=== PATIENT | male | born 1985 | race Two or more races ===

== ENCOUNTER → 2017-04-17 | Emergency (ER) | payer OTHER ==
[~2017-04-17] VITALS: Ht 177.8 cm; Wt 91.6 kg
[~2017-04-17] MED LIST: ACIDOPHILUS1 EAC3 PO; PROTONIX20 MG PO
== END | disposition home or self-care (01) ==
LOC: ER 07:51
DX: K52.9 Noninfective gastroenteritis and colitis, unspecified (principal); E86.0 Dehydration

== ENCOUNTER → 2017-08-03 | Emergency (ER) | payer OTHER | END | disposition home or self-care (01) | LOC: ER 19:25 | DX: M26.69 Other specified disorders of temporomandibular joint (principal); R42 Dizziness and giddiness ==

== ENCOUNTER 2018-10-30 08:00 | Emergency (ER) | payer OTHER ==
[~2018-10-30] VITALS: Ht 177.8 cm; Wt 95.3 kg
[2018-10-30] MEDS ORDERED: RANITIDINE HCL150 MG (08:28)
[2018-10-30] MEDS ORDERED: CIPRO500 MG/5 M (08:28)
== END 2018-10-30 17:44 | disposition home or self-care (01) ==
LOC: ER 08:00
DX: K52.9 Noninfective gastroenteritis and colitis, unspecified (principal)